=== PATIENT | female | born 1995 ===

== ENCOUNTER 2018-01-19 12:23 | Emergency (ER) | payer OTHER ==
[~2018-01-19] VITALS: Ht 170.2 cm; Wt 52.2 kg
[2018-01-19] MEDS ORDERED: TRINESSA LO TA1 EACH (12:39)
[2018-01-19] MEDS ORDERED: URETRON D-S TAB1 TAB PO (15:00)
[2018-01-19] MEDS ORDERED: BACTRIM DS TAB1 EACH PO (15:00)
== END 2018-01-19 15:01 | disposition home or self-care (01) ==
LOC: ER 12:23
DX: N39.0 Urinary tract infection, site not specified (principal); B96.29 Other Escherichia coli [E. coli] as the cause of diseases classified elsewhere